=== PATIENT | male | born 1975 | race Caucasian/White ===

== ENCOUNTER → 2023-08-18 14:08 | Outpatient (CLI) | payer OTHER, SELFPAY ==
--- NOTE | ~2023-08-18 | XR_ITS ---
XR thoracic spine 3V DATE: 08/18/2023 14:38 INDICATION: Mid back pain for 6 days. Working on deck. TECHNIQUE: AP, lateral, swimmer views COMPARISON: None FINDINGS: Mild thoracolumbar dextroscoliosis. No fracture or dislocation or bone destruction. The thoracic pedicles are intact. No paraspinal soft tissue thickening. IMPRESSION: Mild thoracolumbar dextroscoliosis Reviewed, dictated and finalized at location L.
== END ==
PROVIDERS: PCP Physician Assistant; Visit Provider Physician Assistant
DX: M54.6 Pain in thoracic spine (principal)
CPT/HCPCS: 72072

== ENCOUNTER 2024-06-04 01:44 | Emergency (ER) | payer OTHER, SELFPAY ==
--- NOTE | ~2024-06-04 | CT_ITS ---
EXAMINATION: CT abdomen pelvis wo con DATE: 06/04/2024 06:38 INDICATION: Flank pain TECHNIQUE: Computed tomography (CT) of the abdomen and pelvis was performed without intravenous contr ast. The dose-length product was 527.68 mGy-cm. Automated exposure control and iterative reconstructi on technique were employed. COMPARISON: CT dated 01/24/2022. FINDINGS: There are distal right ureteral stones, largest measuring 5 mm with moderate right hydronep hrosis. There is periureteral and perinephric edema. There are enlarged mesenteric lymph nodes with h azy infiltration of the mesenteric fat, suspicious for panniculitis. Status post cholecystectomy. Enl arged prostate gland. Nonobstructive bowel gas pattern. No significant vascular abnormality. No lymph adenopathy. Normal appendix. The liver, spleen, pancreas, adrenal glands and left kidney are unremarkable. No acu te osseous abnormality. IMPRESSION: 1. Obstructing distal right ureteral stones measuring up to 5 mm in the distal aspect of the right ur eter just proximal to the UVJ. Moderate hydronephrosis with perinephric and periureteral edema. 2: Panniculitis. Reviewed, dictated and finalized at location B. IMPRESSION: 1. Obstructing distal right ureteral stones measuring up to 5 mm in the distal aspect of the right ureter just proximal to the UVJ. Moderate hydronephrosis wi th perinephric and periureteral edema. 2: Panniculitis.
--- NOTE | ~2024-06-04 | XR_ITS ---
XR abdomen/kub 1V 06/04/2024 08:53 INDICATION: Flank pain TECHNIQUE: KUB COMPARISON: None FINDINGS: Bowel gas pattern is normal. There are cholecystectomy clips. There are distal right ureter al stones in the pelvis.. There is no evidence of free air, mass, organomegaly, ascites or obstructio n.. The bones appear intact. IMPRESSION: 1: Right urolithiasis. Reviewed, dictated and finalized at location B. IMPRESSION: 1: Right urolithiasis.
[2024-06-04 01:51] VITALS: BP 155/83; PULSE 66; RESP 20; TEMP 36.4; O2SAT 98
[2024-06-04 06:05] VITALS: BP 139/88; PULSE 63; RESP 16; O2SAT 97
[2024-06-04 06:08] LABS: Basophils Absolute Auto 0.1 K/mm3 (0.0-0.1); Basophils Percent Auto 0.8 % (0.2-1.2); Eosinophils Absolute Auto 0.3 K/mm3 (0-0.3); Eosinophils Percent Auto 2.5 % (0-4.4); Hematocrit 48.5 % (42.0-52.0); Hemoglobin 16.6 g/dL (14.0-18.0); Immature Granulocyte Absolute 0.05 K/mm3 (0.00-0.031); Immature Granulocyte Percent A 0.4 % (0-0.5); Lymphocytes Absolute Auto 3.19 K/mm3 (0.9-3.2); Lymphocytes Percent Auto 26.6 % (18.3-44.2); Mean Corpuscular HGB Conc 34.2 g/dl (32-36); Mean Corpuscular Hemoglobin 30.5 pg (26-34); Mean Platelet Volume 9.9 fl (7.4-10.4); Monocytes Absolute Auto 0.8 K/mm3 (0.1-0.6); Monocytes Percent Auto 6.6 % (2.6-8.5); Neutrophils Absolute Auto 7.6 K/mm3 (1.3-6.7); Neutrophils Percent Auto 63.1 % (45.5-73.1); Platelet Count Result 247 k/mm3 (150-375); Red Blood Count 5.45 M/mm3 (4.6-6.20); Red Cell Distribution Width 12.9 % (11.5-14.5)
[2024-06-04 06:14] LABS: Appearance Urine Clear (Clear); Bacteria Urine None Seen /hpf; Bilirubin Urine Negative (Negative); Blood Urine 3+ (Negative); Color Urine Yellow (Yellow); Glucose Urine UA Negative (Negative); Ketones Urine Negative (Negative); Leukocyte Esterase Ur Negative LEU/UL (Negative); Nitrate Urine Negative (Negative); Protein Urine Trace mg/dL (Negative); RBC Urine 21-50 /hpf (0-2); Specific Grav Ur 1.022 (1.001-1.035); Squamous Epithelial Cell Urine None Seen /hpf (Few); Urobilinogen Urine 0.2 mg/dL (<2.0); WBC Urine 0-5 /hpf (0-3); pH Urine 5.5 (5.0-9.0)
[2024-06-04 06:24] LABS: Alanine Aminotransferase 25 U/L (6-50); Albumin Level 4.4 g/dL (3.5-5.1); Alkaline Phosphatase 78 U/L (38-126); Anion Gap 8 mmol/L (4-12); Aspartate Amino Transferase 30 U/L (17-59); Bilirubin,Total 0.4 mg/dL (0.2-1.3); Blood Urea Nitrogen 21 mg/dL (9-20); Calcium 8.9 mg/dL (8.4-10.2); Carbon Dioxide 28 mmol/L (22-30); Chloride 102 mmol/L (98-107); Estimated CRCL calculation 60 ml/min; Estimated Glomerular Filt Rate 59; Glucose 123 mg/dL (65-110); Potassium 3.7 mmol/L (3.4-5.0); Sodium 138 mmol/L (137-145)
[2024-06-04 06:49] LABS: Add Urine Microscopic? YES
[2024-06-04 07:37] VITALS: BP 130/89; PULSE 70; RESP 14; O2SAT 97
--- NOTE | 2024-06-04 07:43 | ED.MALEGU ---
HPI - Male Genitourinary General Chief complaint: Urogenital-Male Stated complaint: flank pain Time Seen by Provider: 06/04/24 07:41 Source: patient Mode of arrival: ambulatory Limitations: no limitations History of Present Illness HPI Narrative: Patient presents with right flank pain starting between 630 and 7:00 p.m. he has a history of kidney stones that he can not recall the name of his urologist. He previously underwent lithotripsy once and states that the 2 other episodes he passed without incident. He denies any dysuria, hematuria, urinary urgency, frequency, or fevers. He does state that the feels like he needs to urinate. Pain was initially very intense although he states he is pain-free now. Related Data Allergies Allergy/AdvReac Type Severity Reaction Status Date / Time azithromycin Allergy Anaphylaxis Verified 06/04/24 06:20 Iodinated Contrast Media Allergy Anaphylaxis Verified 06/04/24 06:20 [facility] Past Medical History Medical History History of kidney stones Surgical History Surgical History History of lithotripsy x1 Exam Narrative: GENERAL: Well-appearing, well-nourished, and in no acute distress. HEAD: Normocephalic, atraumatic. EYES: Non injected, non icteric ENT: Nares clear, no rhinorrhea or epistaxis. NECK: Supple. CHEST: Speaking in full sentences. No respiratory distress. HEART: Regular rate and rhythm. . ABDOMEN: Soft, nondistended. EXTREMITIES: Normal range of motion. No edema. SKIN: Warm, dry, no rash. NEURO: No focal deficits. Alert and oriented x3. PSYCH: Normal mood and affect. Course Vital Signs Vital signs: Vital Signs Temperature 97.6 F 06/04/24 01:51 Pulse Rate 66 06/04/24 01:51 Respiratory Rate 20 06/04/24 01:51 Blood Pressure 155/83 H 06/04/24 01:51 Pulse Oximetry 98 06/04/24 01:51 Oxygen Delivery Room Air 06/04/24 01:51 Temperature 97.6 F 06/04/24 01:51 Pulse Rate 74 06/04/24 09:05 Respiratory Rate 14 06/04/24 09:05 Blood Pressure 116/103 H 06/04/24 09:05 Pulse Oximetry 98 06/04/24 09:05 Oxygen Delivery Room Air 06/04/24 01:51 MDM - Male Genitourinary MDM Narrative Medical decision making narrative: Patient presents with right flank pain. He has a history of kidney stones and has underwent lithotripsy once and past to other kidney stones without incident. No fever or urinary symptoms. In the emergency department he is afebrile with vital signs show hypertension. Workup initiated from triage and confirmation of stone on CT determined before I saw patient who is pain-free at this time. Given this, I did discuss with your urologist on-call who recommends obtaining a KUB to see if stone can be seen/followed. Recommend straining urine, analgesic medication, Flomax, and obtain a urine culture as well as providing antibiotics. Patient will trial outpatient management and expulsion therapy for stone and follow-up clinic. He is provided contact information for urologist and advised to take stoned follow-up appointment. He is also given strict emergency department return precautions. Discharged in stable condition. Lab Data Attestation: I reviewed the patient's lab results. Lab results narrative: Leukocytosis 06/04/24 06:00 06/04/24 06:00 Labs: Lab Results 06/04/24 Range/Units 06:00 WBC 12.0 H (4.5-10.0) K/mm3 RBC 5.45 (4.6-6.20) M/mm3 Hgb 16.6 (14.0-18.0) g/dL Hct 48.5 (42.0-52.0) % MCV 89.0 (80-100) fl MCH 30.5 (26-34) pg MCHC 34.2 (32-36) g/dl RDW 12.9 (11.5-14.5) % Plt Count 247 (150-375) k/mm3 MPV 9.9 (7.4-10.4) fl Immature Gran % (Auto) 0.4 (0-0.5) % Neut % (Auto) 63.1 (45.5-73.1) % Lymph % (Auto) 26.6 (18.3-44.2) % [place] % (Auto) 6.6 (2.6-8.5) % Eos % (Auto) 2.5 (0-4.4) % Baso % (Auto) 0.8 (0.2-1.2) % Lymph
[2024-06-04] MEDS: SODIUM CHLORIDE 0.9% IV 1,000 ML 999 ML IV CONT (07:58)
[2024-06-04] MEDS: KETOROLAC 15 MG/ML VIAL (*BKC) IV PUSH (07:59)
[2024-06-04] MEDS: TAMSULOSIN HCL 0.4 MG CAPSULE PO (09:04)
[2024-06-04] MEDS: CEPHALEXIN 500 MG CAPSULE PO (09:04)
[2024-06-04 09:05] VITALS: BP 116/103; PULSE 74; RESP 14; O2SAT 98
== END 2024-06-04 09:24 | disposition home or self-care (01) ==
PROVIDERS: Emergency Medicine; Emergency Provider Student in an Organized Health Care Education/Training Program; PCP Physician Assistant
DX: N13.2 Hydronephrosis with renal and ureteral calculous obstruction (principal); M79.3 Panniculitis, unspecified; D72.829 Elevated white blood cell count, unspecified; Z87.442 Personal history of urinary calculi
CPT/HCPCS: 36415; 74018; 74176; 80053; 81001; 85025; 87086; 96361; 96374; 99284; A9270; J1885; J7030